=== PATIENT | male | born 1945 | race Caucasian/White ===

== ENCOUNTER 2025-08-25 12:20 | Inpatient (IN) | payer MEDICARE, OTHER, SELFPAY ==
[2025-08-16 13:45] VITALS: BMI 26.2
[2025-08-16 14:08] LABS: Hematocrit 38.5 % (39.0-52.0); Hemoglobin 14.2 g/dL (13.0-18.0); Mean Corp Hgb Conc. 36.9 g/dL (33.0-37.0); Mean Corpuscular Volume 98.2 fL (80.0-94.0); Nucleated Red Blood Cells % 0 % (-); Platelet Count 117 10^3/uL (130-400); Red Cell Dist. Width 11.7 % (11.5-14.5)
[2025-08-16 14:29] LABS: ALT (SGPT) 17 U/L (0-50); AST (SGOT) 25 U/L (17-59); Albumin 4.6 g/dl (3.5-5.0); Alkaline Phosphatase 62 U/L (38-126); Blood Urea Nitrogen 19 mg/dl (9-20); Calcium 9.6 mg/dl (8.4-10.2); Carbon Dioxide 28 mmol/L (22-30); Chloride 103 mmol/L (98-107); Estimated Creatinine Clearance 76 ml/min; Glucose 86 mg/dl (70-99); Glycohemoglobin (HgbA1c) 5.1 % (4.0-5.9); Potassium 4.4 mmol/L (3.5-5.1); Sodium 139 mmol/L (135-145); Total Protein 7.2 g/dl (6.3-8.2); eGFR > 60.00
[2025-08-17 15:48] LABS: C-Reactive Protein < 5.00 mg/L (0.0-10.00)
[2025-08-18 12:09] VITALS: BMI 26.2
[2025-08-25] VITALS (11 sets, daily range): BP systolic 103–131; BP diastolic 63–77; BMI 26.2
[2025-08-25] MEDS: NORMOSOL-R/PLASMALYTE-A 1000 IV ×2 (13:51→20:06)
[2025-08-25] MEDS: TYLENOL 650 MG PO ×2 (13:51→20:11)
[2025-08-25] MEDS: CELEBREX 200 MG PO (13:51)
[2025-08-25] MEDS: ZOFRAN 4 MG IV (18:03)
[2025-08-25] MEDS: ULTRAM 50 MG PO (18:16)
--- NOTE | 2025-08-25 19:23 | PTCARENOTE ---
Pt arrived from PACU to 2S @1855 s/p Right BERTHA Revision. AAOx3. Vital signs stable. O2 100% on 2L. Right hip antibacterial adhesive dressing is clean, dry, and intact. Pt has no complaints of pain. Boxed lunch provided. Call eli within reach. Care
ongoing.
--- NOTE | 2025-08-25 19:23 | OR.RPT ---
Operative Report
Operative Report
Orthopaedic Surgery Operative Note
DATE OF OPERATION: 08-25-2025��
�
PREOPERATIVE DIAGNOSES: Chronic instability right total hip arthroplasty�
�
POSTOPERATIVE DIAGNOSES: Same
�
OPERATION PERFORMED: Revision right total hip arthroplasty, single component, with ball head exchange and constrained liner placement
�
SURGEON: Paul Cornell MD
�
ENDORSEMENT CLERK: Kevin Dent PA-C who helped with patient and limb positioning and retraction
�
ANESTHESIA: Spinal
�
COMPLICATIONS: None.
�
ESTIMATED BLOOD LOSS: 200 mL.
�
DRAINS: None
SPECIMEN: NA
FINDINGS: No signs of advanced liner wear; well fixed components; disruption of posterior capsule
�
IMPLANTS:�
1. Biomet [place] Constrained Liner, extended, neutral, size 25 for 58mm Ringlock acetabular component
2. Biomet metal femoral head 36mm; +0 for ringlock constrained liner
3. Biomet Ringlock locking ring for 58mm acetabular component
�
INDICATIONS: The patient presented to my office with history of recurrent right prosthetic hip dislocation. He had history of left hip instability treated with constrained liner that was doing very well. The patient had several instances of right
hip instability and closed reduction. He was concerned about recurrent instability and was interested in revision to constrained liner like had done on the left in [place]. We discussed treatment options for instability including nonoperative and
operative treatments. His xrays and CT showed no signs of osteolysis or prosthetic complication. We reviewed the natural history of this problem, as well as the risks, benefits, and alternatives of various treatment options. The patient exhausted
all nonoperative treatment options and wished to proceed with revision hip replacement surgery. I discussed that primary revision option would be exchange of modular parts including ball head and liner to constrained liner. We discussed option to
revise cup to dual mobility if needed. Infection workup showed negative inflammatory markers. The patient understood the risks which included, but were not limited to, bleeding, infection, failure to relieve pain, more pain than preop, damage to
blood vessels and nerves, need for reoperation, mechanical failure of the implants, wound healing problems, stiffness, instability, blood clot, pulmonary embolism, myocardial infarction, pneumonia, arrhythmia, CVA, and . The patient accepted
these risks and wished to proceed. All questions were answered, and informed consent was obtained.�
�
PROCEDURE IN DETAIL: The patient was identified in the preoperative holding area. The right hip was identified as the operative site. The patient was taken in the operating room and transferred to the operative table. Spinal anesthesia was
performed. IV antibiotics and tranexamic acid were administered. The patient was placed in the lateral position with Stulberg hip positioners. Axillary roll was placed. The down leg was well padded. All bony prominences were well padded. The
operative limb was prepped and draped in the usual sterile fashion.�
�
Time out was performed. A posterolateral approach to the hip was used. Dissection was taken down sharply through subcutaneous tissues. Meticulous hemostasis was achieved throughout the case with electrocautery. We split the fascia christi in line with
skin incision. I split the gluteus buddy bluntly. We cauterized all crossing vessels as we split it. I palpated the sciatic nerve and made sure it was well posterior in the operative field. It was protected throughout the case.�
�
I performed a partial bursectomy to identify the posterior capsule and soft tissue. This was atypical from prior surgery. The gluteus medius and minimus were identified and retracted anteriorly. I then performed a trapezoidal capsulotomy. Most of
the capsule had been avulsed from the femur. The prosthetic joint was visible after splitting the ITB. The capsule edges were tagged for later repair. I dissected the capsule from about the femoral and acetabular prosthesis. I then gently dislocated
the hip posteriorly. The femoral component was inspect and noted to be well fixed to bone without loosening and with good antiversion. It was lateralized which would help with stability. The ball head was removed. It�s size was noted and compared to
the stated size in the operative note and noted to be the same. The turnion was inspected and found to be intact without signs of corrosion or other damage. No signs of polyethylene wear.��
I placed a curve hohmann retractor over the anterior lip of the acetabular component. The femur was carefully translated anteriorly to expose the acetabular component. A second retractor was placed inferiorly. Capsule was removed until a
circumferential view of the acetabulum was achieved. The liner was disengaged from the locking mechanism. This mechanism was inspected and noted to be intact without damage. The size was confirmed and compared to stated size in the operative report
and noted to be the same. The hip was trialed with trial ball heads. The hip was noted to be stable throughout the arch of motion. The hip was taken through a complete range of motion. It was noted to be stable in extension without impingement. It
was stable in the position of sleep and in flexion with internal rotation. The limb length and offset were checked compared to the capsular flap and the down leg and was appropriate. The trial ball head was removed, and the final ball head was
impacted onto a clean and dry Rojas taper noting the optimal position of the laser etching in line with the stem superiorly.�
The socket was irrigated and then the final liner was impacted into place. The hip was taken through a range of motion, but the liner dislocated with the constrained head. The components were removed. The ring in the ringlock cup was exchanged. It
hadn�t had signs of damage, but was exchanged to a new one. The previously trialed constrained liner was impacted into place, but it would not engage the new locking ring and was unstable. A second constrained liner was opened, this one with some
built in offset, and this one did engage the locking mechanism securely. The final head was impacted into place as before, and the hip was reduced. The ball audibly and palpably engaged the locking mechanism. The hip was taken through a range of
motion and was stable in flexion and IR, full flexion, position of sleep, and extension with ER. The leg lengths matched. There was no instability or subluxation of the head or the liner within the acetabular component.
�
A dilute betadine soak was performed for approximately 3 minutes, and then the hip was copiously irrigated. I repaired the capsule and posterior soft tissue with #2 Ethibond to drill holes in the greater trochanter. The fascia christi was closed with
#1 PDS in running fashion. The subcutaneous tissues were closed with 2-0 monofilament in running fashion. The skin was reapproximated with 3-0 monofilament subcuticular suture. I placed a Prineo dressing followed by a Mepilex Ag dressing. The
patient awoke from anesthesia without difficulty. �Sponge and instrument counts were correct x2 at the end of the case.�
�
I was present and participated in the entire procedure. I checked leg length at the ankles after transfer on the bed which was equal. The patient was sent to the recovery room in stable condition.�
Haim Cornell MD
[2025-08-25] MEDS: BACTROBAN 2% OINTMENT 1 APPLIC NASAL (20:08)
[2025-08-25] MEDS: SENOKOT 17.2 MG PO (20:09)
[2025-08-25] MEDS: DECADRON 4 MG IV (20:09)
[2025-08-25] MEDS: COLACE 100 MG PO (20:09)
[2025-08-25] MEDS: TORADOL 15 MG IV (20:10)
[2025-08-25] MEDS: ASPIRIN 325 MG PO (20:21)
[2025-08-25] MEDS: NEURONTIN 300 MG PO (22:19)
[2025-08-25] MEDS: ANCEF 5 IV (22:19)
[2025-08-25] MEDS: PEPCID 20 MG PO (22:20)
[2025-08-26] MEDS: TYLENOL PO (00:49)
[2025-08-26 02:40] VITALS: BP 112/63
[2025-08-26] MEDS: TYLENOL 650 MG PO ×2 (03:22→08:52)
[2025-08-26 06:00] VITALS: BMI 25.9
[2025-08-26] MEDS: ANCEF 5 IV (06:09)
[2025-08-26 07:20] VITALS: BP 107/56
--- NOTE | 2025-08-26 08:31 | CM ---
Cm reviewed medical records. Patient plans to return home with home PT at [facility] with appointment 08/29. Patient's with provide transportation to home.
PLAN: Home with [facility]
[2025-08-26] MEDS: TORADOL 15 MG IV (08:51)
[2025-08-26] MEDS: BACTROBAN 2% OINTMENT 1 APPLIC NASAL (08:51)
[2025-08-26] MEDS: SENOKOT 17.2 MG PO (08:52)
[2025-08-26] MEDS: COLACE 100 MG PO (08:52)
[2025-08-26] MEDS: DECADRON 4 MG IV (08:52)
[2025-08-26] MEDS: ASPIRIN 325 MG PO (08:53)
[2025-08-26] MEDS: INDERAL LA 60 MG PO (08:53)
[2025-08-26 10:29] VITALS: BP 120/63; PULSE 64; O2SAT 100
--- NOTE | 2025-08-26 10:34 | W.PN.ORTHO ---
Today's Communication / Plan
-
d/c if mod I RW w/ PT/OT
Assessment
.
Distal Motor Intact: Yes
Dressing:
Clean, dry and intact.
Assessment:
History of small bowel obstruction following anesthesia.
Have stressed again prior to discharge the importance of adhering to bowel regimen with adequate hydration. He does wish to avoid opioids which will definitely help.
Hypotensive-asymptomatic in bed but has not participated with therapy yet. Midodrine x1 dose to prevent orthostasis.
Plan
.
Surgery / Date: R BERTHA Revision Dr Cornell 08/25/25
DVT Prophylaxis: Aspirin
Activity:
Out of bed.
PT/OT
Discharge Plan: Home w/ Outpatient PT
Subjective
.
.:
Patient resting comfortably.
Vital Signs and Labs
.
Vital Signs and Labs:
Lab Results
08/16/25 13:39
08/16/25 13:39
Temp Pulse Resp BP Pulse Ox
97.7 F 75 16 107/56 97
08/26/25 07:20 08/26/25 07:20 08/26/25 07:20 08/26/25 07:20 08/26/25 07:20
Non-invasive Hgb result: 13.0
Physical Exam
-
HEENT: No pallor, cyanosis, or jaundice. Throat clear.
NECK: Supple. No JVD.
RESPIRATORY: Lungs clear to auscultation.
CVS: S1, S2 normal. RRR.� No murmur, rub or gallop.
ABDOMEN: Soft, non-tender. No distension. BS+/normal.
EXTREMITIES: strength equal, no calf pain with palpation
MATTRESS STUFFER: AOx3. No focal deficits. affirmative action specialist grossly intact
--- NOTE | 2025-08-26 10:44 | W.DS.TRANS ---
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
-
Discharge Instructions:
Sleep Apnea Risk Intermediate
Discharge Diagnosis/Procedures R BERTHA Revision Dr Cornell 08/25/2025
Diet As tolerated
Activity With Walker
Driving Restrictions No driving
Bathing Restrictions OK to Shower
Other Services PT
Instructions:
Stand-Alone Forms: Total Hip/Knee Replacement D/C
Changes to Home Medications: Yes
Discharge Medications:
DC Medications w/original date entered in [facility]
Mupirocin/Mometasone Sinus Irrigation 1 dose intranasal PRN PRN CHRONIC SINUSITIS 08/12/25
cetirizine 10 mg tablet 10 mg PO DAILY Allergies 08/12/25
cholecalciferol (vitamin D3) 25 mcg (1,000 unit) tablet (Vitamin D3) 25 mcg PO DAILY Supplement 08/12/25
cyanocobalamin (vitamin B-12) 5,000 mcg chewable tablet 5,000 mcg PO DAILY Supplement 08/12/25
multivit,Ca,min-iron 8 mg-folic acid 200 mcg-lycopene 600 mcg tablet (Men's Daily Multivitamin) 1 tab PO DAILY Supplement 08/12/25
red yeast rice 600 mg capsule 1,200 mg PO DAILY Supplement 08/12/25
Held on 08/26/25. Instructions: Resume on 09/03/25.
mupirocin 2 % topical ointment 1 applic topical BID infection prevention #1 tube 08/15/25
celecoxib 200 mg capsule 200 mg PO DAILY Anti-inflammatory #14 caps 08/16/25
dexamethasone 4 mg tablet 4 mg PO BID inflammation #6 tabs 08/16/25
famotidine 20 mg tablet 20 mg PO HS GI prophylaxis #30 tabs 08/16/25
gabapentin 300 mg capsule 300 mg PO HS PRN sleep/pain #10 caps 08/16/25
ondansetron 4 mg disintegrating tablet 4 mg PO Q6H PRN n/v #20 tabs 08/16/25
tramadol 50 mg tablet 50 mg PO Q6H PRN 1 tab moderate pain, 2 if severe #30 tabs 08/16/25
Saccharomyces boulardii 250 mg capsule (Florastor) 250 mg PO BID #1 cap 08/26/25
acetaminophen 500 mg tablet 1,000 mg (2 x 500 mg) PO QID Pain #0 tabs 08/26/25
aspirin 325 mg tablet 325 mg PO DAILY blood clot prevention #1 tab 08/26/25
docusate sodium 100 mg capsule (Colace) 100 mg PO BID stool softner #1 cap 08/26/25
magnesium hydroxide 400 mg/5 mL oral suspension (Milk of Magnesia) 30 ml PO HS PRN constipation #1 mL 08/26/25
propranolol 60 mg tablet 60 mg PO DAILY tremor #0 tabs 08/26/25
sennosides 8.6 mg tablet (Senokot) 17.2 mg (2 x 8.6 mg) PO BID laxative #2 tabs 08/26/25
Home Medication Changes
mupirocin 2 % topical ointment 1 applic topical BID infection prevention #1 tube 08/15/25
celecoxib 200 mg capsule 200 mg PO DAILY Anti-inflammatory #14 caps 08/16/25
dexamethasone 4 mg tablet 4 mg PO BID inflammation #6 tabs 08/16/25
famotidine 20 mg tablet 20 mg PO HS GI prophylaxis #30 tabs 08/16/25
gabapentin 300 mg capsule 300 mg PO HS PRN sleep/pain #10 caps 08/16/25
ondansetron 4 mg disintegrating tablet 4 mg PO Q6H PRN n/v #20 tabs 08/16/25
tramadol 50 mg tablet 50 mg PO Q6H PRN 1 tab moderate pain, 2 if severe #30 tabs 08/16/25
Saccharomyces boulardii 250 mg capsule (Florastor) 250 mg PO BID #1 cap 08/26/25
acetaminophen 500 mg tablet 1,000 mg (2 x 500 mg) PO QID Pain #0 tabs 08/26/25
aspirin 325 mg tablet 325 mg PO DAILY blood clot prevention #1 tab 08/26/25
docusate sodium 100 mg capsule (Colace) 100 mg PO BID stool softner #1 cap 08/26/25
magnesium hydroxide 400 mg/5 mL oral suspension (Milk of Magnesia) 30 ml PO HS PRN constipation #1 mL 08/26/25
propranolol 60 mg tablet 60 mg PO DAILY tremor #0 tabs 08/26/25
sennosides 8.6 mg tablet (Senokot) 17.2 mg (2 x 8.6 mg) PO BID laxative #2 tabs 08/26/25
Pending Results: No
[2025-08-26 11:10] VITALS: BP 98/63
[2025-08-26 11:21] VITALS: BP 115/66
[2025-08-26 13:23] LABS: Hepatitis C Antibody Negative (Negative)
== END 2025-08-26 12:41 | disposition home or self-care (01) | DRG 481 ==
LOC: 2 SOUTH 12:20
PROVIDERS: ADMITTING PHYSICIAN Orthopaedic Surgery; FAMILY PHYSICIAN Internal Medicine
PROC: 0SW904Z Revision of Internal Fixation Device in Right Hip Joint, Open Approach (ICD-10-PCS; 2025-08-25)
DX: T84.020A Dislocation of internal right hip prosthesis, initial encounter (principal); I50.30 Unspecified diastolic (congestive) heart failure; Y79.2 Prosthetic and other implants, materials and accessory orthopedic devices associated with adverse incidents; I11.0 Hypertensive heart disease with heart failure; I08.0 Rheumatic disorders of both mitral and aortic valves; E83.119 Hemochromatosis, unspecified; G25.0 Essential tremor; I87.2 Venous insufficiency (chronic) (peripheral); E78.5 Hyperlipidemia, unspecified; Z87.891 Personal history of nicotine dependence; M48.00 Spinal stenosis, site unspecified; Z96.642 Presence of left artificial hip joint; Z88.5 Allergy status to narcotic agent
CPT/HCPCS: 36415; 73502; 80053; 83036; 85025; 85652; 86140; 86803; 86850; 86900; 86901; 87070; 93005; 97116; 97162; 97166; 97535